=== PATIENT | female | born 1990 | race Caucasian/White ===

== ENCOUNTER 2023-05-17 10:43 | Emergency (ER) | payer MEDICAID, SELFPAY ==
[2023-05-17 11:21] VITALS: BP 134/79; PULSE 106; RESP 18; TEMP 37.3; O2SAT 98
--- NOTE | 2023-05-17 11:43 | ED.URI ---
HPI - URI/Sore Throat General Chief Complaint: Upper Respiratory Infection Stated Complaint: flu-like symptoms Time Seen by Provider: 05/17/23 11:43 Source: patient and RN notes reviewed Mode of arrival: ambulatory Limitations: no limitations History of Present Illness HPI Narrative: 32-year-old female presenting for complaint of headache, body aches, nasal drainage, and nausea; onset today. Also reports laryngitis along with a mild sore throat started yesterday. Took NyQuil yesterday. She denies known sick contacts. Denies shortness of breath, wheezing, vomiting, fever. MD elicited complaint: cough Related Data Allergies Allergy/AdvReac Type Severity Reaction Status Date / Time No Known Allergies Allergy Verified 05/17/23 11:19 Review of Systems Review of Systems: CONSTITUTIONAL: Endorses malaise, chills, sweats, fever EYES: Denies visual changes, redness, or discharge ENT: Reports rhinorrhea, mild sore throat CARDIOVASCULAR: Denies chest pain, palpitations, edema RESPIRATORY: Reports cough, post nasal drainage. Denies dyspnea GASTROINTESTINAL: reports nausea Denies abdominal pain, vomiting, diarrhea SKIN: Denies rash or itching MUSCULOSKELETAL: Endorses myalgia NEUROLOGIC: endorses headache PMFSH Past Medical History Medical History (Updated 05/17/23 @ 11:55 by Philly Watt APRN) No pertinent past medical history Social History Social History (Updated 05/17/23 @ 11:55 by Philly Watt APRN) Smoking packs per day: 0.5 Smoking cigarettes per day: 10.0 Smoking status: Current every day smoker Tobacco type: cigarettes Exam Narrative: GENERAL: mildly Ill-appearing, nontoxic EYES: PERRLA, conjunctivae clear ENT: Mucous membranes moist. TMs pearly cruz with dull light reflex bilaterally; no tragal tenderness. Oropharynx erythematous without lesions or exudate, tonsils absent; no drooling, no hoarseness, no trismus, uvula midline. No tripod positioning, muffled voice, soft palate or pharyngeal wall bulging NECK: Supple. No lymphadenopathy CHEST: Clear to auscultation, breath sounds equal. No wheezing, rhonchi, rales, or stridor. No respiratory distress, speaks in full sentences. HEART: Regular rate and rhythm. No murmur heard. SKIN: Warm, dry, no rash. NEURO: Alert and oriented x3. PSYCH: Normal mood and affect Course Course Emergency Course: Patient is aware of diagnosis, understands and agrees to treatment plan. Anticipatory guidance given. Patient agrees to follow-up as directed and is aware of reasons to seek care at the emergency department. Portions of this record may have been created with voice recognition software Level of Care: Express Care Visit Vital Signs Vital signs: Vital Signs Temperature 99.1 F 05/17/23 11:21 Pulse Rate 106 H 05/17/23 11:21 Respiratory Rate 18 05/17/23 11:21 Blood Pressure 134/79 05/17/23 11:21 Pulse Oximetry 98 05/17/23 11:21 Oxygen Delivery Room Air 05/17/23 11:21 Temperature 99.1 F 05/17/23 11:21 Pulse Rate 106 H 05/17/23 11:21 Respiratory Rate 18 05/17/23 11:21 Blood Pressure 134/79 05/17/23 11:21 Pulse Oximetry 98 05/17/23 11:21 Oxygen Delivery Room Air 05/17/23 11:21 reviewed MDM - URI/Sore Throat MDM Narrative Medical decision making narrative: COVID and flu negative. Results reviewed with patient. Discussed physical exam findings. Advised supportive measures and signs/symptoms to go to the ER. Pt is appropriate for outpt treatment and f/u. Differential Diagnosis Differential diagnosis: Likely upper respiratory infection, sinusitis and viral infection Discharge Plan Discharge Clinical Impression: Viral infection Patient Disposition: Home, Self-Care Condition: Stable Instructions: Antibiotic Form, Upper Respiratory Infection (ED) Additional Instructions: Your rapid covid test was negative today. It may be too early to detect the virus, therefore we recommend retes
== END 2023-05-17 11:54 | disposition home or self-care (01) ==
PROVIDERS: Emergency Provider Nurse Practitioner Family
DX: B34.9 Viral infection, unspecified (principal); F17.210 Nicotine dependence, cigarettes, uncomplicated
CPT/HCPCS: 87426; 87804; 99203; G0463

== ENCOUNTER 2023-06-24 17:03 | Emergency (ER) | payer MEDICAID, SELFPAY ==
--- NOTE | ~2023-06-24 | XR_ITS ---
EXAMINATION: XR ankle LT min 3V DATE: 06/24/2023 18:01 INDICATION: Left ankle pain and swelling. TECHNIQUE: 4 views of left ankle were obtained. COMPARISON: None. FINDINGS: Bone alignment is normal. No fracture. Joint spaces are normal. There is an enthesophyte at plantar aspect of calcaneal tuberosity. There is ankle soft tissue swelling. IMPRESSION: 1. No fracture. Reviewed, dictated and finalized at location E. [employer] IMPRESSION: 1. No fracture.
[2023-06-24 17:26] VITALS: BP 143/80; PULSE 93; RESP 16; TEMP 36.1; O2SAT 100
--- NOTE | 2023-06-24 17:39 | ED.GENADULT ---
HPI - General Adult General Chief complaint: Extremity Injury, Lower Stated complaint: L FOOT/ANKLE PAIN/SWELLING Time Seen by Provider: 06/24/23 17:39 Source: patient, RN notes reviewed and old records reviewed Mode of arrival: ambulatory Limitations: no limitations History of Present Illness HPI narrative: 32-year-old female presents to [facility] for complaint left ankle edema and pain for 2 days. Patient denies any known injury or any prior injury to left ankle. Patient has treated at home with ibuprofen with some relief. Patient states that she works 2 jobs where she is standing on her feet for extensive amount of time and is not wearing appropriate supportive shoes. Related Data Home Medications Medication Instructions Recorded Confirmed No Home Medications 06/24/23 06/24/23 Allergies Allergy/AdvReac Type Severity Reaction Status Date / Time No Known Allergies Allergy Verified 06/24/23 17:27 Review of Systems Review of Systems: All systems reviewed & are unremarkable except as noted in HPI and below Constitutional: Constitutional: Reports no additional constitutional complaints Eyes: Eyes: Reports no additional eye complaints ENT: Reports system reviewed and no additional complaints, except as documented Cardiovascular: Cardiovascular: Reports no additional cardiovascular complaints, Denies chest pain and Denies dyspnea Respiratory: Respiratory: Reports no additional respiratory complaints, Denies cough and Denies dyspnea Musculoskeletal: Musculoskeletal: Reports arthralgias ( Left ankle), Reports joint swelling ( left ankle), Denies muscle weakness and Denies numbness Neurologic: Reports system reviewed and no additional complaints, except as documented Psychiatric: Psychiatric: Reports no additional psychiatric complaints PMFSH Past Medical History Medical History (Updated 06/24/23 @ 18:19 by Padmini Cameron APRN) No pertinent past medical history Social History Social History (Updated 05/17/23 @ 11:55 by Philly Watt APRN) Smoking packs per day: 0.5 Smoking cigarettes per day: 10.0 Smoking status: Current every day smoker Tobacco type: cigarettes Comments At the time of my signature, I reviewed and agree with the nursing past medical, surgical, social, and family history. There is no relevant family history pertinent to the patient complaint. Exam Const: General: cooperative, healthy appearing, comfortable, no acute distress, alert and well nourished Nutritional Appearance: well nourished Orientation/consciousness: patient oriented x3 Limitations: no limitations HENMT: Head: normal to inspection Ears: external ears normal Face/Nose/Sinus: Normal external nose present, Normal nares present, normal facial exam, No erythema and No edema Face and sinus: normal facial exam, no erythema and no edema Mouth: Yes Normal oral and palatal mucosa present Eyes: General: appearance normal, both eyes and all related structures Neck: Neck: normal visual inspection, full ROM and no meningeal signs Lymphatic: no lymphadenopathy noted and no lymphedema noted Chest: Chest palpation & inspection: normal inspection of the chest Resp: Effort & Inspection: normal respiratory effort and able to speak in complete sentences Auscultation: clear to auscultation bilaterally Cardio: Jugular venous distension: no JVD Rate: regular rate Rhythm: regular rhythm Peripheral pulses: dorsalis pedis present bilateral Back/Spine/Pelvis: Cervical Spine: cervical ROM normal Skin: General skin exam: normal color, no rashes or lesions noted and turgor normal Neuro: General: patient oriented x3, gait normal, moves all extremities and no meningeal signs Speech: normal speech Gait exam (Neuro): Normal gait present Extrem: General: normal to inspection, full ROM and capillary refill normal Left lower extremity: normal capillary refill, edema Details: 1+ and foot Details: normal capillary refill
== END 2023-06-24 18:24 | disposition home or self-care (01) ==
PROVIDERS: Emergency Provider Nurse Practitioner Family
DX: M25.572 Pain in left ankle and joints of left foot (principal); F17.210 Nicotine dependence, cigarettes, uncomplicated
CPT/HCPCS: 73610; 99213; G0463

== ENCOUNTER 2023-07-04 13:31 | Emergency (ER) | payer MEDICAID, SELFPAY ==
[2023-07-04 13:57] VITALS: BP 140/91; PULSE 86; RESP 12; TEMP 36.3; O2SAT 100
[2023-07-04 14:53] VITALS: BP 149/99; PULSE 88; RESP 16; TEMP 36.9; O2SAT 100
--- NOTE | 2023-07-04 16:26 | ED.LOWEXIN ---
HPI - Extremity Injury (Lower) General Chief Complaint: Extremity Injury, Lower Stated Complaint: L ankle injury Time Seen by Provider: 07/04/23 15:09 History of Present Illness HPI Narrative: 33 yo F presenting with left ankle pain. She was seen at urgent care about 10 days ago and an x-ray showed no broken bones. States that she was discharged and the pain has unfortunately worsened. She denies any injuries or new trauma. States that it is swollen. States that really hurts to walk on. No redness or warmth. No calf swelling. No fevers. Related Data Home Medications Medication Instructions Recorded Confirmed No Home Medications 06/24/23 06/24/23 Allergies Allergy/AdvReac Type Severity Reaction Status Date / Time No Known Allergies Allergy Verified 07/04/23 14:53 Review of Systems Review of Systems: All systems reviewed & are unremarkable except as noted in HPI and below PMFSH Past Medical History Medical History No pertinent past medical history Social History Social History Smoking packs per day: 0.5 Smoking cigarettes per day: 10.0 Smoking status: Current every day smoker Tobacco type: cigarettes Exam Narrative: GENERAL: Well-appearing, in no acute distress, pleasant cooperative HEAD: Normocephalic, atraumatic. EYES: PERRLA and EOMI. ENT: Grossly unremarkable NECK: Supple. CHEST: No respiratory distress. EXTREMITIES: Normal range of motion. L ankle with swelling laterally and posteriorly; diffusely tender over lateral malleolus; no redness or warmth; ROM intact SKIN: Warm, dry, no rash. NEURO: Alert and oriented x3. PSYCH: Normal mood and affect. Course Vital Signs Vital signs: Vital Signs Temperature 97.3 F L 07/04/23 13:57 Pulse Rate 86 07/04/23 13:57 Respiratory Rate 12 07/04/23 13:57 Blood Pressure 140/91 H 07/04/23 13:57 Pulse Oximetry 100 07/04/23 13:57 Temperature 97.2 F L 07/04/23 17:10 Pulse Rate 80 07/04/23 17:10 Respiratory Rate 16 07/04/23 17:10 Blood Pressure 128/79 07/04/23 17:10 Pulse Oximetry 100 07/04/23 17:10 Oxygen Delivery Room Air 07/04/23 14:53 MDM - Extremity Injury (Lower) MDM Narrative Medical decision making narrative: 33-year-old female presenting with left ankle pain. Vital stable. Exam remarkable for the above. No evidence of infection or trauma. I reviewed the x-rays from last week. There were no fractured bones or significant effusion. They did note soft tissue swelling and heel spur. I suspect patient's pain is related to poorly supportive footwear. Patient states that she works 2 jobs and is constantly on her feet. Discussed appropriate supportive care with Tylenol and ibuprofen. Will provide crutches to remain nonweightbearing for the time being. Advised follow-up with orthopedics. Appropriate return precautions given. Patient is agreeable this plan. Discharged in stable condition. Differential Diagnosis Differential diagnosis: Likely ankle sprain and strain, acute internal derangement of knee and other (ankle pain) Medical Records Attestation: I reviewed the patient's medical records. Critical Care Time Critical Care Time Critical Care Time: No Discharge Plan Discharge Clinical Impression: Ankle sprain and strain, Heel spur Patient Disposition: Home, Self-Care Condition: Stable Instructions: Antibiotic Form, Ankle Sprain (DC), Heel Spur (ED) Additional Instructions: Please alternate between Tylenol and ibuprofen for pain control. Please use the crutches to keep weight off of the foot. Please follow-up with orthopedic surgery. If your symptoms suddenly worsen or other concerning symptoms arise, please return to the ER. Prescriptions: No Action No Home Medications Follow-up/Referrals: Joo Julian MD [Physician] - Stand Alone
[2023-07-04] MEDS: KETOROLAC 30 MG/ML VIAL (*BKC) IM (16:47)
[2023-07-04 17:10] VITALS: BP 128/79; PULSE 80; RESP 16; TEMP 36.2; O2SAT 100
== END 2023-07-04 17:11 | disposition home or self-care (01) ==
PROVIDERS: Emergency Provider Emergency Medicine; Referring Provider Emergency Medicine
DX: S93.402A Sprain of unspecified ligament of left ankle, initial encounter (principal); S96.912A Strain of unspecified muscle and tendon at ankle and foot level, left foot, initial encounter; M77.32 Calcaneal spur, left foot; F17.210 Nicotine dependence, cigarettes, uncomplicated; X58.XXXA Exposure to other specified factors, initial encounter
CPT/HCPCS: 96372; 99283; J1885

== ENCOUNTER 2023-07-28 08:15 | Outpatient (CLI) | payer MEDICAID, SELFPAY ==
[2023-07-28 12:12] LABS: Basophils Absolute Auto 0.1 K/mm3 (0.0-0.1); Eosinophils Absolute Auto 0.2 K/mm3 (0-0.3); Eosinophils Percent Auto 2.7 % (0-4.4); Hematocrit 46.7 % (37.0-47.0); Hemoglobin 14.6 g/dL (12.0-15.0); Immature Granulocyte Absolute 0.03 K/mm3 (0.00-0.031); Immature Granulocyte Percent A 0.4 % (0-0.5); Lymphocytes Percent Auto 24.5 % (18.3-44.2); Mean Corpuscular HGB Conc 31.3 g/dl (32-36); Mean Corpuscular Hemoglobin 28.5 pg (26-34); Mean Platelet Volume 9.7 fl (7.4-10.4); Monocytes Absolute Auto 0.6 K/mm3 (0.1-0.6); Monocytes Percent Auto 8.2 % (2.6-8.5); Neutrophils Absolute Auto 4.9 K/mm3 (1.3-6.7); Neutrophils Percent Auto 63.2 % (45.5-73.1); Platelet Count Result 388 k/mm3 (150-375); Red Blood Count 5.13 M/mm3 (4.2-5.4); Red Cell Distribution Width 14.8 % (11.5-14.5); White Blood Count 7.8 K/mm3 (4.5-10.0)
[2023-07-28 12:22] LABS: Alanine Aminotransferase 28 U/L (6-35); Albumin Level 4.2 g/dL (3.5-5.1); Alkaline Phosphatase 100 U/L (38-126); Anion Gap 7 mmol/L (4-12); Aspartate Amino Transferase 35 U/L (14-36); Bilirubin,Total 0.6 mg/dL (0.2-1.3); Blood Urea Nitrogen 14 mg/dL (7-17); Calcium 9.3 mg/dL (8.4-10.2); Carbon Dioxide 21 mmol/L (22-30); Chloride 110 mmol/L (98-107); Cholesterol 148 mg/dL (0-200); Estimated Glomerular Filt Rate > 60; Glucose 110 mg/dL (65-110); HDL Direct 42 mg/dL; Potassium 3.8 mmol/L (3.4-5.0); Sodium 138 mmol/L (137-145); Triglycerides 61 mg/dL (<150)
[2023-07-28 12:34] LABS: LDL Cholesterol Direct 100 mg/dL
[2023-07-28 13:05] LABS: Vitamin D 25 Hydroxy 22.8 ng/mL
[2023-07-28 13:26] LABS: Folic Acid 10.2 ng/mL (2.76->20)
[2023-07-28 22:49] LABS: Hemoglobin A1C 5.6 % (<5.7)
[2023-07-29 13:04] LABS: Insulin Level Total 13.5 uIU/mL
== END 2023-07-28 08:16 | disposition home or self-care (01) ==
LOC: ANHGOSHLAB 08:16
PROVIDERS: PCP Emergency Medicine; Visit Provider Emergency Medicine
DX: N93.9 Abnormal uterine and vaginal bleeding, unspecified (principal); R53.83 Other fatigue; Z87.42 Personal history of other diseases of the female genital tract; F41.8 Other specified anxiety disorders; E66.01 Morbid (severe) obesity due to excess calories
CPT/HCPCS: 36415; 80053; 80061; 82306; 82607; 82746; 83036; 83525; 84443; 85025

== ENCOUNTER 2023-08-04 15:14 | Outpatient (CLI) | payer MEDICAID, SELFPAY ==
--- NOTE | ~2023-08-04 | US_ITS ---
EXAMINATION: US transvaginal DATE: 08/04/2023 15:36 INDICATION: Polycystic ovarian syndrome. TECHNIQUE: Multiple transabdominal and transvaginal sonographic images of the pelvis were obtained. COMPARISON: None. FINDINGS: TRANSABDOMINAL ULTRASOUND: The uterus measures 7.9 x 4.7 x 4.8 cm. There is no free fluid in the pelvis. TRANSVAGINAL ULTRASOUND: The endometrial complex measures 7 mm in thickness. The right ovary measures 3.6 x 3.2 x 3.7 cm. Ther e is a 3.0 cm cyst with low-level echoes in right ovary, likely a hemorrhagic cyst. The left ovary me asures 3.3 x 1.3 x 3.6 cm. There is normal vascular flow in the ovaries. IMPRESSION: 1. 3.0 cm hemorrhagic cyst in right ovary. Pelvis ultrasound is recommended in 6-12 weeks. Reviewed, dictated and finalized at location E.
== END 2023-08-04 15:15 ==
PROVIDERS: PCP Emergency Medicine; Visit Provider Emergency Medicine
DX: N83.201 Unspecified ovarian cyst, right side (principal); N93.9 Abnormal uterine and vaginal bleeding, unspecified; Z87.42 Personal history of other diseases of the female genital tract
CPT/HCPCS: 76830